=== PATIENT | male | born 1995 | race Caucasian/White ===

== ENCOUNTER 2016-08-08 13:16 | Emergency (ER) | payer OTHER | END 2016-08-08 19:11 | disposition home or self-care (01) | LOC: ER1 13:16 | DX: S52.611A Displaced fracture of right ulna styloid process, initial encounter for closed fracture (principal); F17.210 Nicotine dependence, cigarettes, uncomplicated; Z23 Encounter for immunization; V89.2XXA Person injured in unspecified motor-vehicle accident, traffic, initial encounter; Y93.89 Activity, other specified; Y92.410 Unspecified street and highway as the place of occurrence of the external cause | CPT/HCPCS: 73080; 73090; 73110; 73130; 90471; 90714; 99284 ==